=== PATIENT | female | born 1990 | race Caucasian/White ===

== ENCOUNTER → 2017-09-07 13:15 | Outpatient (CLI) | payer OTHER, MEDICAID, SELFPAY ==
--- NOTE | 2017-09-07 13:16 | DI.RAD.S_ITS ---
PROCEDURE: XR HAND RT MIN 3V INDICATIONS: trauma to # 3 finger TECHNIQUE: 3 views of the hand(s) acquired. COMPARISON: None. FINDINGS: Bones: Non-articulating, minimally overriding spiral fracture distal shaft of the middle phalanx of the middle finger. Small cortical avulsion at the radial aspect of the DIP joint of the third finger versus periarticular calcification. Carpal bones are normally aligned. No suspicious bony lesions. Soft tissues: No suspicious soft tissue calcifications. IMPRESSION: Fracture third middle phalanx with minimal displacement Dictated by: Kailash Da Silva M.D. on 09/07/2017 at 14:11 Approved by: Kailash Da Silva M.D. on 09/07/2017 at 14:12
== END ==
PROVIDERS: Family Provider Family Medicine; PCP Family Medicine; Visit Provider Physician Assistant
DX: S62.622A Displaced fracture of middle phalanx of right middle finger, initial encounter for closed fracture (principal)
CPT/HCPCS: 73130

== ENCOUNTER → 2017-12-04 09:56 | Outpatient (CLI) | payer OTHER, MEDICAID, SELFPAY | PROVIDERS: Family Provider Internal Medicine; PCP Internal Medicine; Visit Provider Internal Medicine | DX: Z00.00 Encounter for general adult medical examination without abnormal findings (principal) | CPT/HCPCS: 36415; 86787 ==

== ENCOUNTER 2018-03-12 10:03 | Emergency (ER) | payer OTHER, MEDICAID, SELFPAY ==
[2018-03-12 10:19] VITALS: BP 113/81; PULSE 80; RESP 16; TEMP 36.7; O2SAT 100
--- NOTE | 2018-03-12 11:16 | ED.SYNCOPE ---
HPI - Syncope General Chief Complaint: Blood/Body fluid exposure Stated Complaint: NEEDLE STICK,PASSED OUT Time Seen by Provider: 03/12/18 11:00 Source: patient Mode of arrival: ambulatory Limitations: no limitations History of Present Illness HPI narrative: This is a 27-year-old female comes to the emergency department with complaint of needlestick. She found a small insulin needle on the ground she did realize what it was impacted up. She states the end that would normally be into the home of the syringe poked her in the 2nd finger on her right hand. Patient states they washed out immediately. There was no blood. Patient states they do not know if it was used recently or ever used. It was on the med cart in the rehab center. Patient states that she then had a syncopal episode. She states she gets these occasionally she has had for 5 episodes in the past. Usually when she feels like her blood sugar is low. She states that she was stressed today with this happens and thinks that was part of the cause. They also wanted her to get checked out because of this. Patient denies any chest pain or shortness of breath. She is not having any other symptoms. She denies any other medical problems, denies any prior surgeries. She states she is immunized and has her tetanus and hepatitis B up-to-date. 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 ) Neurologic Reports syncope [facility] Social History Smoking Status: Never smoker Exam Initial Vital Signs Initial Vital Signs: Vital Signs Temperature 98.1 F 03/12/18 10:19 Pulse Rate 80 03/12/18 10:19 Respiratory Rate 16 03/12/18 10:19 Blood Pressure 113/81 03/12/18 10:19 Pulse Oximetry 100 03/12/18 10:19 GENERAL: Alert and oriented x three, thin, well-appearing female in mild distress. HEENT: Head normocephalic, atraumatic, EOMI, pupils reactive, face symmetric, moist mucous membranes NECK: Supple, full range of motion CARDIOVASCULAR: Regular rate and rhythm without murmurs, rubs or gallops. RESPIRATORY: Breath sounds equal bilaterally, no wheezes rales or rhonchi. ABDOMEN: Soft, nontender. Normoactive bowel sounds all 4 quadrants. No guarding or rebound, rigidity, no mass : No CVA tenderness EXTREMITIES: Normal range of motion, no clubbing or edema. Neurovascularly intact. Patient showed me her arms 2nd finger, right hand and unable to appreciate an actual puncture wound but patient was able to visualize the actual injury. Normal sensation, full range of motion. No bruising or ecchymosis or skin color changes. Cap refill less than 2 sec. NEUROLOGICAL: Cranial nerves II through XII grossly intact. Moving all extremities SKIN: Warm, dry, no petechiae, no rashes or lesions. Course Orders Ordered: ED Orders 03/12/18 11:15 XR chest 1V Stat EKG-12 Lead Stat 03/12/18 11:37 Complete Blood Count AUTO DIFF Stat Comprehensive Metabolic Panel Stat HIV 1 and 2 Antibody Stat Hepatitis C Virus Antibody Stat Troponin I Stat Vital Signs - 8 hr 03/12/18 10:19 03/12/18 13:02 Temperature 98.1 F 98.4 F Pulse Rate 80 88 Respiratory Rate 16 16 Blood Pressure 113/81 121/64 Pulse Oximetry 100 98 MDM - Syncope Lab Data Attestation: I reviewed the patient's lab results. Result diagrams: 03/12/18 11:37 03/12/18 11:37 Lab Results 03/12/18 03/12/18 03/12/18 Range/Units 11:37 11:37 11:37 WBC 8.8 (4.5-11.0) X10^3/uL RBC 4.91 (4.0-5.2) X10^6/uL Hgb 14.5 (12.0-16.0) g/dL Hct 42.2 (36-46) % MCV 85.9 (80-100) fL MCH 29.5 (26-34) PG MCHC 34.3 (30-36) % RDW 12.6 (11.6-14.8) % Plt Count 257 (150-400) X10^3/uL Neut % (Auto) 82.1 H (50-75) % Lymph % (Auto) 13.2 L (25-40) % [place] % (Auto) 4.3 (3-14) % Eos % (Auto) 0.1 L (2-4) % Baso % (Auto) 0.3 (0-2) % Neut # (Auto) 7200 H (4838-9943) /uL Sodium 143 (137-145) mmol/L Potassium 4.2 (3.4-5.1) mmol/L Chloride 103 (98-107) mmol/L Carbon Dioxide 28 (22-32) mmol/L BUN 9 (7-17) mg/dL Creatinine 0.60 (0.52-1.04) mg/dL Estimated GFR > 60.0 (>60) mL/min BUN/Creatinine Ratio 15.0 (6-22) Glucose 87 (70-100) mg/dL Calcium 9.6 (8.4-10.2) mg/dL Total Bilirubin 0.4 (0.2-1.3) mg/dL AST 21 (14-36) IU/L ALT 21 (9-52) IU/L Alkaline Phosphatase 50 (38-126) U/L Troponin I < 0.012 (0.01-0.034) ng/mL Total Protein 7.9 (6.3-8.2) g/dL Albumin 4.9 (3.5-5.0) g/dL Globulin 3.0 (1.7-4.1) g/dL Albumin/Globulin Ratio 1.6 (1.0-2.8) Hepatitis C Antibody Negative (NEGATIVE) s/c HIV 1&2 Antibody Negative (NEGATIVE) Point of Care Testing Test Results Negative Imaging Data Chest x-ray: Radiologist's impression: [address] [address] XRay Report Signed Patient: Alisa Kaufman [facility]#: [id number] : 1990Acct:[id number] Age/Sex: 27 / FDate of Service: 03/12/18 Loc: ED Accession Number: [id number] Procedure: XR chest 1V Ordering Provider: Catalina Murrieta D.O. PROCEDURE: XR CHEST 1V INDICATIONS: needle stick then syncope TECHNIQUE: One view of the chest was acquired. COMPARISON: None. FINDINGS: Surgical changes and devices: None. Lungs and pleura: No pleural effusions or pneumothorax. Lungs are clear. Mediastinum: Mediastinal contours appear normal. Heart size is normal. Bones and chest wall: No suspicious bony lesions. Overlying soft tissues appear unremarkable. IMPRESSION: No acute cardiopulmonary pathology. Dictated by: Reggie Perez M.D. on 03/12/2018 at 11:41 Approved by: Reggie Perez M.D. on 03/12/2018 at 11:45 ECG Data Attestation: I personally reviewed and interpreted this ECG as follows: Interpretation: Sinus rhythm with a rate of 73 P are of 151 QRS of 95 and QTC of 419. T-wave inversion in lead [address] changes appreciated. MDM Narrative Medical decision making narrative: Discussed with patient this is likely a low risk exposure although we do not know the source but based on the type of needle and the needle stick site on her risk of transmission is on the low end. There is some risk still. Discussed with patient if she would like to start prophylaxis. Her needle stick was actually at 8:50 a.m. in the morning so she did not come over right away after the injury became a little bit later so this also decreases the effectiveness of the medication somewhat. Patient is aware that she needs for serial testing and follow-up particularly as it is an unknown source. No acute findings were found with her EKG, chest x-ray or lab work and likely by her description of symptoms and she has syncope she has a slightly higher vagal tone is more likely to have syncope. Touch base with patient, reviewed EKG chest x-ray and lab work. Patient's hepatitis C and HIV are neg. Plan to discharge patient home as some of these are send out labs. Patient ultimately decided not to do prophylactic medications. We did discuss she needs to follow up for repeat serial testing. Discharge Plan Departure Patient Disposition: Home Clinical Impression: Exposure to blood or body fluid, Syncope Discharge Date/Time: 03/12/18 13:02 Interventions: ED Discharge Assessment Last Done: 03/12/18 13:02 Instructions: DI for Syncope in Adults (Fainting), DI for Accidental Exposure to Body Fluids Activity Restrictions/Additional Instructions: Follow up with your employee health care provider for re-testing and to follow up the rest of your labs that have not resulted today. Return to ER for signs of infection, swelling, redness or other concerning symptoms. Wound Care: Keep wound(s) clean and dry. Wash daily with soap and water only. Do not use over the counter products (alcohol or peroxide)on the wounds unless instructed by a physician. If wound condition worsens (increased/expanding redness, developing fluid blisters, or worsening pain), either contact your doctor for an urgent re-assessment , or return to the Emergency Department. Return to the Emergency Department for any new or worsening symptoms. Return if fever greater than 100.4 Fahrenheit, increased swelling, increasing pain or worsening symptoms such as increased discharge or spreading redness. Use warm compresses 3 times daily for 20 minutes to the affected area. If there is packing in place do not pull it out, if it falls out do not try to replace it. Prescriptions: No Action No Known Home Medications RF: 0 Referrals: Faibana Chopra ARNP [Primary Care Provider] -
--- NOTE | 2018-03-12 11:22 | ED_ITS ---
HPI - Syncope General Chief Complaint: Blood/Body fluid exposure Stated Complaint: NEEDLE STICK,PASSED OUT Time Seen by Provider: 03/12/18 11:00 Source: patient Mode of arrival: ambulatory Limitations: no limitations History of Present Illness HPI narrative: This is a 27-year-old female comes to the emergency department with complaint of needlestick. She found a small insulin needle on the ground she did realize what it was impacted up. She states the end that would normally be into the home of the syringe poked her in the 2nd finger on her right hand. Patient states they washed out immediately. There was no blood. Patient states they do not know if it was used recently or ever used. It was on the med cart in the rehab center. Patient states that she then had a syncopal episode. She states she gets these occasionally she has had for 5 episodes in the past. Usually when she feels like her blood sugar is low. She states that she was stressed today with this happens and thinks that was part of the cause. They also wanted her to get checked out because of this. Patient denies any chest pain or shortness of breath. She is not having any other symptoms. She denies any other medical problems, denies any prior surgeries. She states she is immunized and has her tetanus and hepatitis B up- to-date. 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 ) Neurologic Reports syncope [facility] Social History Smoking Status: Never smoker Exam Initial Vital Signs Initial Vital Signs: Vital Signs Temperature 98.1 F 03/12/18 10:19 Pulse Rate 80 03/12/18 10:19 Respiratory Rate 16 03/12/18 10:19 Blood Pressure 113/81 03/12/18 10:19 Pulse Oximetry 100 03/12/18 10:19 GENERAL: Alert and oriented x three, thin, well-appearing female in mild distress. HEENT: Head normocephalic, atraumatic, EOMI, pupils reactive, face symmetric, moist mucous membranes NECK: Supple, full range of motion CARDIOVASCULAR: Regular rate and rhythm without murmurs, rubs or gallops. RESPIRATORY: Breath sounds equal bilaterally, no wheezes rales or rhonchi. ABDOMEN: Soft, nontender. Normoactive bowel sounds all 4 quadrants. No guarding or rebound, rigidity, no mass : No CVA tenderness EXTREMITIES: Normal range of motion, no clubbing or edema. Neurovascularly intact. Patient showed me her arms 2nd finger, right hand and unable to appreciate an actual puncture wound but patient was able to visualize the actual injury. Normal sensation, full range of motion. No bruising or ecchymosis or skin color changes. Cap refill less than 2 sec. NEUROLOGICAL: Cranial nerves II through XII grossly intact. Moving all extremities SKIN: Warm, dry, no petechiae, no rashes or lesions. Course Orders Ordered: ED Orders 03/12/18 11:15 XR chest 1V Stat EKG-12 Lead Stat 03/12/18 11:37 Complete Blood Count AUTO DIFF Stat Comprehensive Metabolic Panel Stat HIV 1 and 2 Antibody Stat Hepatitis C Virus Antibody Stat Troponin I Stat Vital Signs - 8 hr 03/12/18 10:19 03/12/18 13:02 Temperature 98.1 F 98.4 F Pulse Rate 80 88 Respiratory Rate 16 16 Blood Pressure 113/81 121/64 Pulse Oximetry 100 98 MDM - Syncope Lab Data Attestation: I reviewed the patient's lab results. Result diagrams: 03/12/18 11:37 03/12/18 11:37 Lab Results 03/12/18 03/12/18 03/12/18 Range/Units 11:37 11:37 11:37 WBC 8.8 (4.5-11.0) X10^3/uL RBC 4.91 (4.0-5.2) X10^6/uL Hgb 14.5 (12.0-16.0) g/dL Hct 42.2 (36-46) % MCV 85.9 (80-100) fL MCH 29.5 (26-34) PG MCHC 34.3 (30-36) % RDW 12.6 (11.6-14.8) % Plt Count 257 (150-400) X10^3/uL Neut % (Auto) 82.1 H (50-75) % Lymph % (Auto) 13.2 L (25-40) % [place] % (Auto) 4.3 (3-14) % Eos % (Auto) 0.1 L (2-4) % Baso % (Auto) 0.3 (0-2) % Neut # (Auto) 7200 H (3550-3906) /uL Sodium 143 (137-145) mmol/L Potassium 4.2 (3.4-5.1) mmol/L Chloride 103 (98-107) mmol/L Carbon Dioxide 28 (22-32) mmol/L BUN 9 (7-17) mg/dL Creatinine 0.60 (0.52-1.04) mg/dL Estimated GFR > 60.0 (>60) mL/min BUN/Creatinine Ratio 15.0 (6-22) Glucose 87 (70-100) mg/dL Calcium 9.6 (8.4-10.2) mg/dL Total Bilirubin 0.4 (0.2-1.3) mg/dL AST 21 (14-36) IU/L ALT 21 (9-52) IU/L Alkaline Phosphatase 50 (38-126) U/L Troponin I < 0.012 (0.01-0.034) ng/mL Total Protein 7.9 (6.3-8.2) g/dL Albumin 4.9 (3.5-5.0) g/dL Globulin 3.0 (1.7-4.1) g/dL Albumin/Globulin Ratio 1.6 (1.0-2.8) Hepatitis C Antibody Negative (NEGATIVE) s/c HIV 1&2 Antibody Negative (NEGATIVE) Point of Care Testing Test Results Negative Imaging Data Chest x-ray: Radiologist's impression: [address] [address] XRay Report Signed Patient: Alisa Kaufman [facility]#: [id number] : 1990Acct:[id number] Age/Sex: 27 / FDate of Service: 03/12/18 Loc: ED Accession Number: [id number] Procedure: XR chest 1V Ordering Provider: Catalina Murrieta D.O. PROCEDURE: XR CHEST 1V INDICATIONS: needle stick then syncope TECHNIQUE: One view of the chest was acquired. COMPARISON: None. FINDINGS: Surgical changes and devices: None. Lungs and pleura: No pleural effusions or pneumothorax. Lungs are clear. Mediastinum: Mediastinal contours appear normal. Heart size is normal. Bones and chest wall: No suspicious bony lesions. Overlying soft tissues appear unremarkable. IMPRESSION: No acute cardiopulmonary pathology. Dictated by: Reggie Perez M.D. on 03/12/2018 at 11:41 Approved by: Reggie Perez M.D. on 03/12/2018 at 11:45 ECG Data Attestation: I personally reviewed and interpreted this ECG as follows: Interpretation: Sinus rhythm with a rate of 73 P are of 151 QRS of 95 and QTC of 419. T-wave inversion in lead [address] changes appreciated. MDM Narrative Medical decision making narrative: Discussed with patient this is likely a low risk exposure although we do not know the source but based on the type of needle and the needle stick site on her risk of transmission is on the low end. There is some risk still. Discussed with patient if she would like to start prophylaxis. Her needle stick was actually at 8:50 a.m. in the morning so she did not come over right away after the injury became a little bit later so this also decreases the effectiveness of the medication somewhat. Patient is aware that she needs for serial testing and follow-up particularly as it is an unknown source. No acute findings were found with her EKG, chest x-ray or lab work and likely by her description of symptoms and she has syncope she has a slightly higher vagal tone is more likely to have syncope. Touch base with patient, reviewed EKG chest x-ray and lab work. Patient's hepatitis C and HIV are neg. Plan to discharge patient home as some of these are send out labs. Patient ultimately decided not to do prophylactic medications. We did discuss she needs to follow up for repeat serial testing. Discharge Plan Departure Patient Disposition: Home Clinical Impression: Exposure to blood or body fluid, Syncope Discharge Date/Time: 03/12/18 13:02 Interventions: ED Discharge Assessment Last Done: 03/12/18 13:02 Instructions: DI for Syncope in Adults (Fainting), DI for Accidental Exposure to Body Fluids Activity Restrictions/Additional Instructions: Follow up with your employee health care provider for re-testing and to follow up the rest of your labs that have not resulted today. Return to ER for signs of infection, swelling, redness or other concerning symptoms. Wound Care: Keep wound(s) clean and dry. Wash daily with soap and water only. Do not use over the counter products (alcohol or peroxide)on the wounds unless instructed by a physician. If wound condition worsens (increased/expanding redness, developing fluid blisters, or worsening pain), either contact your doctor for an urgent re- assessment , or return to the Emergency Department. Return to the Emergency Department for any new or worsening symptoms. Return if fever greater than 100.4 Fahrenheit, increased swelling, increasing pain or worsening symptoms such as increased discharge or spreading redness. Use warm compresses 3 times daily for 20 minutes to the affected area. If there is packing in place do not pull it out, if it falls out do not try to replace it. Prescriptions: No Action No Known Home Medications RF: 0 Referrals: Fabiana Chopra ARNP [Primary Care Provider] -
[2018-03-12 11:46] LABS: Add Manual Diff / Slide Review NO; Basophils Percent Auto 0.3 % (0-2); Eosinophils Percent Auto 0.1 % (2-4); Hematocrit 42.2 % (36-46); Hemoglobin 14.5 g/dL (12.0-16.0); Lymphocytes Percent Auto 13.2 % (25-40); Mean Corpuscular HGB Conc 34.3 % (30-36); Mean Corpuscular Hemoglobin 29.5 PG (26-34); Mean Corpuscular Volume 85.9 fL (80-100); Monocytes Percent Auto 4.3 % (3-14); Neutrophils Absolute Auto 7200 /uL (3000-5900); Neutrophils Percent Auto 82.1 % (50-75); Platelet Count 257 X10^3/uL (150-400); Red Blood Cell Count 4.91 X10^6/uL (4.0-5.2); Red Cell Distribution Width 12.6 % (11.6-14.8); White Blood Cell Count 8.8 X10^3/uL (4.5-11.0)
[2018-03-12 12:01] LABS: Alanine Aminotransferase 21 IU/L (9-52); Albumin 4.9 g/dL (3.5-5.0); Albumin Globulin Ratio 1.6 (1.0-2.8); Alkaline Phosphatase 50 U/L (38-126); Aspartate Aminotransferase 21 IU/L (14-36); Bilirubin Total 0.4 mg/dL (0.2-1.3); Blood Urea Nitrogen 9 mg/dL (7-17); Calcium 9.6 mg/dL (8.4-10.2); Carbon Dioxide 28 mmol/L (22-32); Chloride 103 mmol/L (98-107); Estimated Glomerular Filt Rate > 60.0 mL/min (>60); Glucose 87 mg/dL (70-100); HEMOLYSIS < 15 (0-50); Potassium 4.2 mmol/L (3.4-5.1); Sodium 143 mmol/L (137-145); Total Protein 7.9 g/dL (6.3-8.2)
[2018-03-12 12:14] LABS: Troponin I < 0.012 ng/mL (0.01-0.034)
[2018-03-12 12:59] LABS: HIV 1 and 2 Antibody NEGATIVE (NEGATIVE); Hep C Virus Ab w/Reflex Quant NEGATIVE s/c (NEGATIVE)
[2018-03-12 13:02] VITALS: BP 121/64; PULSE 88; RESP 16; TEMP 36.9; O2SAT 98
[2018-03-15 07:43] LABS: Hepatitis B Surf Ab Qualitativ Borderline (Nonreactive)
== END 2018-03-12 13:02 | disposition home or self-care (01) ==
PROVIDERS: Emergency Provider Emergency Medicine; Family Provider Internal Medicine; PCP Internal Medicine
DX: Z77.21 Contact with and (suspected) exposure to potentially hazardous body fluids (principal); R55 Syncope and collapse; W46.0XXA Contact with hypodermic needle, initial encounter
CPT/HCPCS: 36415; 71045; 80053; 81025; 84484; 85025; 86703; 86706; 86803; 93005; 93010; 99283; 99285

== ENCOUNTER → 2018-05-06 16:30 | Outpatient (CLI) | payer OTHER, MEDICAID, SELFPAY ==
[2018-05-06 19:21] LABS: HIV 1 and 2 Antibody NEGATIVE (NEGATIVE); Hep C Virus Ab w/Reflex Quant NEGATIVE s/c (NEGATIVE); Hepatitis B Surface Antigen NEGATIVE s/c (NEGATIVE)
[2018-05-08 15:20] LABS: Hepatitis B Surf AB Imm QUANT 6 mIU/mL (> 9)
== END ==
PROVIDERS: Visit Provider Family Medicine
DX: N20.9 Urinary calculus, unspecified (principal)
CPT/HCPCS: 36415; 86317; 86703; 86803; 87340

== ENCOUNTER → 2022-05-23 13:47 | Outpatient (CLI) | payer OTHER, SELFPAY ==
--- NOTE | 2022-05-23 | DI.RAD.S_ITS ---
PROCEDURE: XR T AND L SPINE 4 TO 5 VIEWS INDICATIONS: BACK PAIN, SCOLIOSIS TECHNIQUE: 2 views acquired of the thoracolumbar spine. COMPARISON: None. FINDINGS: Scoliosis: There is a convex left thoracolumbar scoliosis with a Loving angle of 16.8 degrees from the superior endplate of T8 to the superior endplate of T12. Alignment: There are appropriate kyphotic thoracic and lordotic lumbar curvatures. Vertebrae: Normal bone mineralization. Vertebral body heights and alignment maintained. No vertebral anomalies. Soft tissues: Unremarkable. IMPRESSION: Thoracolumbar levoscoliosis without vertebral anomaly Approved by: Al Martínez M.D. on 05/23/2022 at 17:40
== END ==
PROVIDERS: Family Provider Internal Medicine; PCP Internal Medicine; Referring Provider Internal Medicine; Visit Provider Internal Medicine
DX: M54.6 Pain in thoracic spine (principal); M41.9 Scoliosis, unspecified
CPT/HCPCS: 72083